=== PATIENT | male | born 1945 | race Caucasian/White ===

== ENCOUNTER → 2017-02-19 | Outpatient (CLI) | payer MEDICARE, OTHER | END | disposition home or self-care (01) | LOC: GMAJ 16:44 | PROVIDERS: ATTEND Family Medicine | DX: R60.0 Localized edema (principal); I50.22 Chronic systolic (congestive) heart failure ==

== ENCOUNTER → 2017-12-27 | Outpatient (CLI) | payer MEDICARE, OTHER | LOC: GMAJ 10:32 | PROVIDERS: ATTEND Family Medicine | DX: Z12.5 Encounter for screening for malignant neoplasm of prostate (principal) ==

== ENCOUNTER 2018-12-16 05:38 | Day surgery (SDC) | payer MEDICARE ==
[2018-12-16] MEDS ORDERED: TROP 1%/CYCLOPEN 1%/PHENYL 2% DROPS OPHTH ONE (05:39)
[2018-12-16] MEDS ORDERED: MOXIFLOXACIN HCL (OPHTH) 1 DROP DROPS ONE (05:52)
[2018-12-16] MEDS ORDERED: PROPARACAINE 0.5% OPHTH SOL 15 ML BTTL ONE (05:52)
[2018-12-16] MEDS ORDERED: MIDAZOLAM INJ 2 MG/2 ML VIAL ONE (06:57)
[2018-12-16] MEDS ORDERED: PROPARACAINE 0.5% OPHTH SOL 15 ML BTTL RIGHT_EYE ONE (07:23)
[2018-12-16] MEDS ORDERED: LIDOCAINE 1% 2 ML VIAL INJ ONE (07:38)
[2018-12-16] MEDS ORDERED: DEXAMETHASONE 0.1% OPHTH SOL 1 DROP RIGHT_EYE ONE ×2 (07:38→07:48)
[2018-12-16] MEDS ORDERED: BRIMONIDINE 0.2% OPHTH DROPS RIGHT_EYE ONE ×2 (07:39→07:48)
[2018-12-16] MEDS ORDERED: TOBRAMYCIN SULF 0.3 % OPHT SOL 1 DROP RIGHT_EYE ONE ×2 (07:39→07:48)
[2018-12-16] MEDS ORDERED: MOXIFLOXACIN HCL (OPHTH) 1 DROP DROPS RIGHT_EYE ONE ×2 (07:39→07:46)
== END 2018-12-16 08:24 | disposition home or self-care (01) ==
LOC: AMB 05:38
PROVIDERS: ATTEND Ophthalmology
DX: H25.11 Age-related nuclear cataract, right eye (principal); I10 Essential (primary) hypertension; I25.10 Atherosclerotic heart disease of native coronary artery without angina pectoris; E11.36 Type 2 diabetes mellitus with diabetic cataract; K21.9 Gastro-esophageal reflux disease without esophagitis; Z79.01 Long term (current) use of anticoagulants; Z79.84 Long term (current) use of oral hypoglycemic drugs; Z79.899 Other long term (current) drug therapy
CPT/HCPCS: 00142; 36416; 66984; 82948; J2250

== ENCOUNTER 2018-12-30 05:24 | Day surgery (SDC) | payer MEDICARE, OTHER ==
[2018-12-30] MEDS ORDERED: MOXIFLOXACIN HCL (OPHTH) 1 DROP DROPS ONE (05:41)
[2018-12-30] MEDS ORDERED: TROP 1%/CYCLOPEN 1%/PHENYL 2% DROPS ONE (05:42)
[2018-12-30] MEDS ORDERED: PROPARACAINE 0.5% OPHTH SOL 15 ML BTTL ONE (05:42)
[2018-12-30] MEDS ORDERED: MIDAZOLAM INJ 2 MG/2 ML VIAL ONE (06:39)
[2018-12-30] MEDS ORDERED: fentaNYL CITRATE INJ 50 MCG/ML AMP ONE (06:39)
[2018-12-30] MEDS ORDERED: PROPARACAINE 0.5% OPHTH SOL 15 ML BTTL LEFT_EYE ONE (07:15)
[2018-12-30] MEDS ORDERED: LIDOCAINE 1% 2 ML VIAL INJ ONE (07:25)
[2018-12-30] MEDS ORDERED: DEXAMETHASONE 0.1% OPHTH SOL 1 DROP LEFT_EYE ONE (07:38)
[2018-12-30] MEDS ORDERED: TOBRAMYCIN SULF 0.3 % OPHT SOL 1 DROP LEFT_EYE ONE (07:38)
[2018-12-30] MEDS ORDERED: BRIMONIDINE 0.2% OPHTH DROPS LEFT_EYE ONE (07:38)
== END 2018-12-30 08:20 | disposition home or self-care (01) ==
LOC: AMB 05:24
PROVIDERS: ATTEND Ophthalmology
DX: H25.12 Age-related nuclear cataract, left eye (principal); I10 Essential (primary) hypertension; E11.36 Type 2 diabetes mellitus with diabetic cataract; K21.9 Gastro-esophageal reflux disease without esophagitis; Z79.899 Other long term (current) drug therapy
CPT/HCPCS: 00142; 36415; 36416; 66984; 82948; J2250; J3010

== ENCOUNTER → 2019-04-21 | Outpatient (CLI) | payer MEDICARE, OTHER | LOC: GMAJ 12:18 | PROVIDERS: ATTEND Family Medicine | DX: Z12.5 Encounter for screening for malignant neoplasm of prostate (principal); I10 Essential (primary) hypertension; E78.00 Pure hypercholesterolemia, unspecified; E11.9 Type 2 diabetes mellitus without complications ==

== ENCOUNTER → 2020-06-29 | Outpatient (CLI) | payer OTHER | LOC: GMAJ 10:41 | PROVIDERS: ATTEND Family Medicine | DX: Z12.5 Encounter for screening for malignant neoplasm of prostate (principal) ==

== ENCOUNTER → 2020-07-07 | Outpatient (CLI) | payer OTHER | LOC: GMAJ 14:14 | PROVIDERS: ATTEND Family Medicine | DX: F03.90 Unspecified dementia, unspecified severity, without behavioral disturbance, psychotic disturbance, mood disturbance, and anxiety (principal) ==

== ENCOUNTER → 2020-07-12 | Outpatient (CLI) | payer OTHER ==
--- NOTE | 2020-07-12 15:47 | MRI ---
EXAM DESCRIPTION: Brain w/o Contrast: MRI. CLINICAL HISTORY: UNSPEC. DEMENTIA WITHOUT BEHAVIORAL DISTURBANCE COMPARISON: MRI scan of the brain without contrast December 2013. TECHNIQUE: Multiplanar, high-field MRI unit, multiple diffusion sequences, multiple conventional sequences without contrast. FINDINGS: Confluent FLAIR and T2-weighted signal in the periventricular white matter of the frontal parietal and occipital lobes, especially right parietal lobe. Scattered bilateral foci similar single in the subcortical white matter. This has progressed since the prior study but no hemorrhage, no cerebral edema, no midline shift. In the posterior right parietal lobe and right occipital lobe above the level of the ventricles is the most prominent area of gliosis and white matter changes as well as encephalomalacia. This corresponds to embolic CVA seen on the prior study in these regions involving the watershed area of the right middle cerebral artery and the right posterior cerebral artery. No hemorrhage, no cerebral edema, no midline shift New focal area of diffusion restriction involving the periventricular white matter of the posterior left lateral ventricle and the left occipital lobe almost parasagittal on the B 1000 diffusion weighted sequence, image 16. This could indicate new focal ischemia or infarction.. No hemorrhage, no cerebral edema, no midline shift.. No abnormal signal in the bilateral basal ganglia; signal is age-related. Normal signal in the brainstem and cerebellar hemispheres. No hemorrhage, no cerebral edema, no mass-effect. Concordance of the diffusion and non-diffusion sequences with no diffusion restriction. Cortical sulci, ventricles, and other CSF spaces, and the subdural spaces are slightly more prominent than prior study. No effacement or displacement. No midline shift. No extra-axial hemorrhage. Normal flow signal void in the major vessels of the g[place] Yates, and the venous sinuses. IACs are symmetric bilaterally. Normal signal in the bilateral mastoid air cells. No mass effect in the bilateral cerebellopontine angles. Pituitary gland occupies the base of the sella. Base of the cerebellar tonsils is above the level of the foramen magnum. Paranasal sinuses are unremarkable.. The bony calvarium is intact. IMPRESSION: 1. 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 2. 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 3. Possible small focal infarct in the periventricular white matter of the left occipital lobe abutting the posterior left lateral. Not associated with hemorrhage, mass effect, cerebral edema, or midline shift. 4. Small pituitary gland stable since the prior study. Electronically signed by: Radames Reed MD 07/12/2020 3:45 PM CDT
== END ==
LOC: MRI 08:49
PROVIDERS: ATTEND Family Medicine
DX: F03.90 Unspecified dementia, unspecified severity, without behavioral disturbance, psychotic disturbance, mood disturbance, and anxiety (principal); R90.82 White matter disease, unspecified; I63.9 Cerebral infarction, unspecified; G93.89 Other specified disorders of brain; E23.6 Other disorders of pituitary gland